=== PATIENT | female | born 1960 | race Caucasian/White ===

== ENCOUNTER 2017-07-27 06:48 | Day surgery (SDC) | payer OTHER ==
[2017-07-27] MEDS: NS 1,000 ML IV (07:30)
[2017-07-27] MEDS ORDERED: PROPOFOL 200 MG/20 ML VIAL As Ordered (08:12)
== END 2017-07-27 09:18 | disposition home or self-care (01) ==
LOC: M OPP 06:48
DX: Z12.11 Encounter for screening for malignant neoplasm of colon (principal); K64.8 Other hemorrhoids; D12.0 Benign neoplasm of cecum; D12.2 Benign neoplasm of ascending colon; D12.4 Benign neoplasm of descending colon; K57.30 Diverticulosis of large intestine without perforation or abscess without bleeding; R03.0 Elevated blood-pressure reading, without diagnosis of hypertension; M12.9 Arthropathy, unspecified; M54.5 Low back pain; G43.909 Migraine, unspecified, not intractable, without status migrainosus; Z79.899 Other long term (current) drug therapy; Z88.8 Allergy status to other drugs, medicaments and biological substances; Z90.710 Acquired absence of both cervix and uterus
CPT/HCPCS: 45385